=== PATIENT | female | born 1960 | race Two or more races ===

== ENCOUNTER 2017-11-02 13:49 | Inpatient (IN) | payer OTHER ==
[~2017-11-02] VITALS: Ht 160 cm; Wt 120.8 kg
[2017-11-02 15:09] LABS: Basophils # (auto) 0 uL; Basophils % (auto) 0.7 % (0.0-2.0); Eosinophils # (auto) 0.3 uL; Eosinophils % (auto) 8.2 % (0.0-7.0); Hematocrit 26.4 % (36.0-46.0); Hemoglobin 8.9 g/dL (12.2-16.2); Lymphocytes # (auto) 0.5 uL; Mean Corpuscular Hemoglobin 27.9 pg (28.0-32.0); Mean Corpuscular Hgb Conc. 33.8 g/dL (32.0-36.0); Mean Corpuscular Volume 82.5 fL (80.0-100.0); Monocytes # (auto) 0.7 uL; Monocytes % (auto) 15.7 % (0.0-12.0); Neutrophils # (auto) 2.7 uL; Neutrophils % (auto) 64.4 % (37.0-80.0); Platelet Count (auto) 211 10^3/uL (140-450); Red Cell Distribution Width 15.1 % (11.8-14.3); White Blood Cell 4.2 10^3/uL (4.4-10.8)
[2017-11-02] MEDS ORDERED: IPRATROPIUM BROM 0.5 MG/2.5ML INH SOL NEB ONE (15:15)
[2017-11-02] MEDS ORDERED: methylPREDNISolone SOD SUCC 125 MG/2 ML VL IV ONE (15:15)
[2017-11-02] MEDS ORDERED: ALBUTEROL SULF 2.5 MG/0.5ML(0.5%) NEB SOLN NEB ONE (15:15)
[2017-11-02 15:16] LABS: Alanine Aminotransferase 29 U/L (13-56); Alkaline Phosphatase 148 U/L (45-117); Anion Gap 11 (5-15); Aspartate Aminotransferase 21 U/L (15-37); BUN/Creatinine Ratio 33.2; Bilirubin, Total 0.2 mg/dL (0.2-1.0); Calcium 7.9 mg/dL (8.5-10.1); Carbon Dioxide 20 mmol/L (21-32); Chloride 104 mmol/L (98-107); GFR African American 19 mL/min; GFR Non-African American 15 mL/min; Glucose 80 mg/dL (74-106); Potassium 4.5 mmol/L (3.5-5.1); Sodium 135 mmol/L (136-145); Total Protein 6.9 g/dL (6.4-8.2)
[2017-11-02 15:22] LABS: Blood Urea Nitrogen 110 mg/dL (7-18)
[2017-11-02] MEDS ORDERED: cefTRIAXone 1GM/10ml IVPUSH 10 ML IV ONE (16:30)
[2017-11-02] MEDS ORDERED: FUROSEMIDE 40 MG/4 ML VIAL IV ONE (16:30)
[2017-11-02] MEDS ORDERED: AZITHROMYCIN 500MG/ 250ML 250 ML IV ONE (16:30)
[2017-11-02] MEDS ORDERED: ACCU-CHEK COMFORT CURVE STRIP VI ONE (19:00)
[2017-11-02] MEDS ORDERED: DEXTROSE (50%) 50ML SYRG IV PRN (19:00)
[2017-11-02] MEDS ORDERED: LACTULOSE 20Gm/30ML SOLN PO ONE (19:00)
[2017-11-02] MEDS: InsuLIN REG 1unit/0.01ml Soln (100units/ml) SC SCH (22:21)
[2017-11-02] MEDS: ACCU-CHEK COMFORT CURVE STRIP VI SCH (22:21)
[2017-11-02] MEDS: ATORVASTATIN 20 MG TAB PO SCH (22:21)
[2017-11-02 23:00] VITALS: BP 159/73
[2017-11-02 23:05] VITALS: BP 159/73
[2017-11-02] MEDS: ALBUTEROL SULF 2.5 MG/0.5ML(0.5%) NEB SOLN NEB SCH (23:52)
[2017-11-03] VITALS (8 sets, daily range): BP systolic 121–170; BP diastolic 71–89
[2017-11-03] MEDS ORDERED: CLON0.1T PO ×2 (04:51)
[2017-11-03] MEDS ORDERED: ATOR20TA50 PO (04:51)
[2017-11-03] MEDS ORDERED: ALBUAER3 IN (05:13)
[2017-11-03] MEDS ORDERED: CARV6.2551 PO ×2 (05:13)
[2017-11-03] MEDS ORDERED: NIFE30TA76 PO (05:13)
[2017-11-03] MEDS ORDERED: FURO20TA3 PO ×2 (05:13)
[2017-11-03] MEDS ORDERED: LOSA100T27 PO (05:13)
[2017-11-03] MEDS ORDERED: INSUINJ2 SC ×2 (05:13)
[2017-11-03] MEDS ORDERED: LACT10SO3 PO (05:13)
[2017-11-03] MEDS ORDERED: INSR100KIT IV (05:13)
[2017-11-03] MEDS ORDERED: MOME200A INH (05:13)
[2017-11-03] MEDS: InsuLIN REG 1unit/0.01ml Soln (100units/ml) SC SCH ×4 (06:43→22:06)
[2017-11-03] MEDS: ACCU-CHEK COMFORT CURVE STRIP VI SCH ×4 (06:43→22:06)
[2017-11-03] MEDS: ALBUTEROL SULF 2.5 MG/0.5ML(0.5%) NEB SOLN NEB SCH ×3 (07:21→22:42)
[2017-11-03] MEDS ORDERED: ENOXAPARIN SOD 40 MG/0.4 ML SYRINGE SC SCH (10:00)
[2017-11-03] MEDS ORDERED: INSULIN 70/30 1unit/0.01ml Susp (100units/ml) SC SCH (10:00)
[2017-11-03] MEDS ORDERED: FUROSEMIDE 20 MG TAB PO SCH (10:00)
[2017-11-03] MEDS ORDERED: NIFEdipine ER 30 MG TAB PO SCH (10:00)
[2017-11-03] MEDS ORDERED: cloNIDine HCL 0.1 MG TAB PO SCH (10:00)
[2017-11-03] MEDS ORDERED: CARVEDILOL 3.125 MG TAB PO SCH (10:00)
[2017-11-03] MEDS: cefTRIAXone 1GM/10ml IVPUSH 10 ML IV SCH (11:04)
[2017-11-03] MEDS: methylPREDNISolone SOD SUCC 125 MG/2 ML VL IV SCH ×2 (11:05→22:05)
[2017-11-03] MEDS: ENOXAPARIN SOD 30 MG/0.3 ML SYRINGE SC SCH (11:05)
[2017-11-03] MEDS: PANTOPRAZOLE 40 MG TAB PO SCH (11:05)
[2017-11-03] MEDS: AZITHROMYCIN 250 MG TAB PO SCH (11:05)
[2017-11-03] MEDS ORDERED: INSULIN DETEMIR(LEVEMIR) 1unit/0.01ml Soln (100units/ml) SC ONE (11:30)
[2017-11-03] MEDS: FUROSEMIDE 100 MG/10ML VIAL IV SCH ×2 (11:43→18:08)
[2017-11-03 11:55] LABS: Phosphorus 4.4 mg/dL (2.5-4.90); Uric Acid 10.4 mg/dL (2.6-6.0)
[2017-11-03 11:56] LABS: Protein, Urine 74.9 mg/dL (0.0-11.9)
[2017-11-03 15:00] LABS: Urine Bacteria FEW /hpf (None Seen); Urine Blood Trace /uL (Negative); Urine Specific Gravity 1.009 (1.001-1.035)
[2017-11-03] MEDS: cloNIDine HCL 0.1 MG TAB PO PRN ×2 (18:09→22:42)
[2017-11-03] MEDS: ATORVASTATIN 20 MG TAB PO SCH (22:05)
[2017-11-03] MEDS: INSULIN DETEMIR(LEVEMIR) 1unit/0.01ml Soln (100units/ml) SC SCH (22:06)
[2017-11-03] MEDS ORDERED: ACETAMINOPHEN 325 MG TAB PO ONE (22:30)
[2017-11-04] MEDS ORDERED: InsuLIN REG 1unit/0.01ml Soln (100units/ml) IV ONE
[2017-11-04] MEDS: InsuLIN REG 1unit/0.01ml Soln (100units/ml) SC SCH ×7 (04:25→22:01)
[2017-11-04 05:00] VITALS: BP 155/90
[2017-11-04] MEDS: ACCU-CHEK COMFORT CURVE STRIP VI SCH ×4 (06:28→22:02)
[2017-11-04] MEDS: FUROSEMIDE 100 MG/10ML VIAL IV SCH ×2 (06:28→17:39)
[2017-11-04] MEDS: ALBUTEROL SULF 2.5 MG/0.5ML(0.5%) NEB SOLN NEB SCH ×3 (06:46→21:29)
[2017-11-04 07:42] LABS: Albumin 3.4 g/dL (3.4-5.0); Bilirubin, Total 0.3 mg/dL (0.2-1.0); Calcium 8.8 mg/dL (8.5-10.1); Potassium 4.7 mmol/L (3.5-5.1); Total Protein 8.2 g/dL (6.4-8.2)
[2017-11-04 09:00] VITALS: BP 136/66
[2017-11-04] MEDS: cefTRIAXone 1GM/10ml IVPUSH 10 ML IV SCH (10:05)
[2017-11-04] MEDS: CARVEDILOL 12.5 MG TAB PO SCH (10:06)
[2017-11-04] MEDS: PANTOPRAZOLE 40 MG TAB PO SCH (10:07)
[2017-11-04] MEDS: NIFEdipine ER 30 MG TAB PO SCH (10:07)
[2017-11-04] MEDS: AZITHROMYCIN 250 MG TAB PO SCH (10:07)
[2017-11-04] MEDS: ENOXAPARIN SOD 30 MG/0.3 ML SYRINGE SC SCH (10:08)
[2017-11-04 12:30] VITALS: BP 163/94
[2017-11-04 17:28] VITALS: BP 156/76
[2017-11-04 21:36] VITALS: BP 139/75
[2017-11-04] MEDS: ATORVASTATIN 20 MG TAB PO SCH (22:01)
[2017-11-04] MEDS: INSULIN DETEMIR(LEVEMIR) 1unit/0.01ml Soln (100units/ml) SC SCH (22:02)
[2017-11-05] MEDS: InsuLIN REG 1unit/0.01ml Soln (100units/ml) SC SCH ×7 (01:36→22:24)
[2017-11-05] MEDS: FUROSEMIDE 100 MG/10ML VIAL IV SCH ×2 (06:06→18:24)
[2017-11-05] MEDS: ACCU-CHEK COMFORT CURVE STRIP VI SCH ×4 (06:07→22:24)
[2017-11-05 06:23] LABS: Basophils # (auto) 0 uL; Basophils % (auto) 0.1 % (0.0-2.0); Eosinophils # (auto) 0 uL; Eosinophils % (auto) 0.1 % (0.0-7.0); Hematocrit 31.1 % (36.0-46.0); Hemoglobin 10.7 g/dL (12.2-16.2); Lymphocytes # (auto) 1.2 uL; Lymphocytes % (auto) 17.8 % (10.0-50.0); Mean Corpuscular Hemoglobin 27.5 pg (28.0-32.0); Mean Corpuscular Hgb Conc. 34.3 g/dL (32.0-36.0); Mean Corpuscular Volume 80.1 fL (80.0-100.0); Monocytes # (auto) 0.8 uL; Monocytes % (auto) 11.3 % (0.0-12.0); Neutrophils # (auto) 4.9 uL; Neutrophils % (auto) 70.7 % (37.0-80.0); Nucleated Red Blood Cells % 0.1 %; Platelet Count (auto) 284 10^3/uL (140-450); Red Blood Cells 3.89 10^6/uL (4.0-5.20); Red Cell Distribution Width 15.3 % (11.8-14.3); White Blood Cell 6.9 10^3/uL (4.4-10.8)
[2017-11-05 06:51] LABS: Albumin 3.4 g/dL (3.4-5.0); Calcium 9.2 mg/dL (8.5-10.1); Potassium 4.2 mmol/L (3.5-5.1)
[2017-11-05 06:56] LABS: BUN/Creatinine Ratio 53.1; Bilirubin, Total 0.2 mg/dL (0.2-1.0); Total Protein 7.5 g/dL (6.4-8.2)
[2017-11-05] MEDS: ALBUTEROL SULF 2.5 MG/0.5ML(0.5%) NEB SOLN NEB SCH ×3 (07:19→22:16)
[2017-11-05 09:07] VITALS: BP 144/75
[2017-11-05 09:30] LABS: Hepatitis B Surface Antigen Negative (Negative)
[2017-11-05] MEDS: cefTRIAXone 1GM/10ml IVPUSH 10 ML IV SCH (09:43)
[2017-11-05] MEDS: CARVEDILOL 12.5 MG TAB PO SCH (09:44)
[2017-11-05] MEDS: NIFEdipine ER 30 MG TAB PO SCH (09:45)
[2017-11-05] MEDS: PANTOPRAZOLE 40 MG TAB PO SCH (09:45)
[2017-11-05] MEDS: AZITHROMYCIN 250 MG TAB PO SCH (09:46)
[2017-11-05] MEDS: ENOXAPARIN SOD 30 MG/0.3 ML SYRINGE SC SCH (09:46)
[2017-11-05 09:53] LABS: Hepatitis C Antibody Negative (Negative)
[2017-11-05 13:00] VITALS: BP 148/71
[2017-11-05] MEDS ORDERED: CALCITRIOL 0.25 MCG CAP PO ONE (13:00)
[2017-11-05] MEDS: ALLOPURINOL 100 MG TAB PO SCH (13:30)
[2017-11-05] MEDS: CALCIUM ACETATE 667 MG CAP PO SCH ×2 (13:30→18:24)
[2017-11-05 16:51] VITALS: BP 136/66
[2017-11-05 22:00] VITALS: BP 140/84
[2017-11-05] MEDS: ATORVASTATIN 20 MG TAB PO SCH (22:22)
[2017-11-05] MEDS: INSULIN DETEMIR(LEVEMIR) 1unit/0.01ml Soln (100units/ml) SC SCH (22:24)
[2017-11-06] MEDS: InsuLIN REG 1unit/0.01ml Soln (100units/ml) SC SCH ×5 (01:54→22:52)
[2017-11-06 03:07] VITALS: BP 140/84
[2017-11-06 05:53] VITALS: BP 148/78
[2017-11-06] MEDS: FUROSEMIDE 100 MG/10ML VIAL IV SCH (06:01)
[2017-11-06] MEDS: ACCU-CHEK COMFORT CURVE STRIP VI SCH ×3 (06:02→22:36)
[2017-11-06] MEDS: ALBUTEROL SULF 2.5 MG/0.5ML(0.5%) NEB SOLN NEB SCH ×2 (07:09→22:58)
[2017-11-06 08:05] LABS: Albumin 3.1 g/dL (3.4-5.0); BUN/Creatinine Ratio 53.7; Bilirubin, Total 0.3 mg/dL (0.2-1.0); Calcium 8.2 mg/dL (8.5-10.1); Potassium 3.8 mmol/L (3.5-5.1); Total Protein 7.4 g/dL (6.4-8.2)
[2017-11-06 09:25] VITALS: BP 137/68
[2017-11-06] MEDS: ENOXAPARIN SOD 30 MG/0.3 ML SYRINGE SC SCH (10:13)
[2017-11-06] MEDS: cefTRIAXone 1GM/10ml IVPUSH 10 ML IV SCH (10:13)
[2017-11-06] MEDS: ALLOPURINOL 100 MG TAB PO SCH (10:14)
[2017-11-06] MEDS: AZITHROMYCIN 250 MG TAB PO SCH (10:14)
[2017-11-06] MEDS: PANTOPRAZOLE 40 MG TAB PO SCH (10:15)
[2017-11-06] MEDS: CALCITRIOL 0.25 MCG CAP PO SCH (10:15)
[2017-11-06] MEDS: NIFEdipine ER 30 MG TAB PO SCH (10:15)
[2017-11-06] MEDS: CARVEDILOL 12.5 MG TAB PO SCH (10:16)
[2017-11-06] MEDS: CALCIUM ACETATE 667 MG CAP PO SCH ×3 (10:27→18:04)
[2017-11-06 12:05] VITALS: BP 97/49
[2017-11-06 16:41] VITALS: BP 146/79
[2017-11-06] MEDS ORDERED: DEXTROSE (50%) 50ML SYRG IV PRN (18:00)
[2017-11-06] MEDS: FUROSEMIDE 40 MG/4 ML VIAL IV SCH (18:05)
[2017-11-06] MEDS ORDERED: InsuLIN REG 1unit/0.01ml Soln (100units/ml) SC ONE (18:15)
[2017-11-06] MEDS: ATORVASTATIN 20 MG TAB PO SCH (22:52)
[2017-11-06] MEDS: INSULIN DETEMIR(LEVEMIR) 1unit/0.01ml Soln (100units/ml) SC SCH (22:53)
[2017-11-06 23:41] VITALS: BP 116/54
[2017-11-07 05:48] VITALS: BP 148/70
[2017-11-07] MEDS: ACCU-CHEK COMFORT CURVE STRIP VI SCH ×4 (06:12→22:00)
[2017-11-07] MEDS: FUROSEMIDE 40 MG/4 ML VIAL IV SCH ×2 (06:17→17:18)
[2017-11-07] MEDS: InsuLIN REG 1unit/0.01ml Soln (100units/ml) SC SCH ×4 (06:18→22:25)
[2017-11-07] MEDS: ALBUTEROL SULF 2.5 MG/0.5ML(0.5%) NEB SOLN NEB SCH ×3 (06:42→23:04)
[2017-11-07 07:06] LABS: BUN/Creatinine Ratio 56.7; Calcium 8.6 mg/dL (8.5-10.1); Potassium 3.8 mmol/L (3.5-5.1)
[2017-11-07 08:30] VITALS: BP 133/63
[2017-11-07] MEDS: cefTRIAXone 1GM/10ml IVPUSH 10 ML IV SCH (09:26)
[2017-11-07] MEDS: ENOXAPARIN SOD 30 MG/0.3 ML SYRINGE SC SCH (09:27)
[2017-11-07] MEDS: AZITHROMYCIN 250 MG TAB PO SCH (09:27)
[2017-11-07] MEDS: CALCIUM ACETATE 667 MG CAP PO SCH ×3 (09:27→17:18)
[2017-11-07] MEDS: PANTOPRAZOLE 40 MG TAB PO SCH (09:27)
[2017-11-07] MEDS: CALCITRIOL 0.25 MCG CAP PO SCH (09:27)
[2017-11-07] MEDS: ALLOPURINOL 100 MG TAB PO SCH (09:27)
[2017-11-07] MEDS: NIFEdipine ER 30 MG TAB PO SCH (09:28)
[2017-11-07] MEDS: CARVEDILOL 12.5 MG TAB PO SCH (09:29)
[2017-11-07 16:47] VITALS: BP 128/73
[2017-11-07] MEDS ORDERED: POLYETHYLENE GLYCOL 17 GM PWDR PO ONE (17:30)
[2017-11-07 20:00] VITALS: BP 125/55
[2017-11-07 22:00] VITALS: BP 125/55
[2017-11-07] MEDS: ATORVASTATIN 20 MG TAB PO SCH (22:19)
[2017-11-07] MEDS: INSULIN DETEMIR(LEVEMIR) 1unit/0.01ml Soln (100units/ml) SC SCH (22:24)
[2017-11-08 05:00] VITALS: BP 125/59
[2017-11-08] MEDS: ACCU-CHEK COMFORT CURVE STRIP VI SCH ×2 (06:41→11:38)
[2017-11-08] MEDS: FUROSEMIDE 40 MG/4 ML VIAL IV SCH (06:41)
[2017-11-08] MEDS: InsuLIN REG 1unit/0.01ml Soln (100units/ml) SC SCH ×2 (06:42→12:07)
[2017-11-08] MEDS: ALBUTEROL SULF 2.5 MG/0.5ML(0.5%) NEB SOLN NEB SCH (06:54)
[2017-11-08 07:06] LABS: Basophils # (auto) 0 uL; Basophils % (auto) 0.2 % (0.0-2.0); Eosinophils # (auto) 0.3 uL; Eosinophils % (auto) 4.6 % (0.0-7.0); Hematocrit 30.6 % (36.0-46.0); Hemoglobin 10.5 g/dL (12.2-16.2); Lymphocytes % (auto) 15.7 % (10.0-50.0); Mean Corpuscular Hemoglobin 27.4 pg (28.0-32.0); Mean Corpuscular Hgb Conc. 34.2 g/dL (32.0-36.0); Mean Corpuscular Volume 79.9 fL (80.0-100.0); Monocytes # (auto) 0.5 uL; Monocytes % (auto) 8.3 % (0.0-12.0); Neutrophils # (auto) 4.6 uL; Neutrophils % (auto) 71.2 % (37.0-80.0); Platelet Count (auto) 282 10^3/uL (140-450); Red Blood Cells 3.83 10^6/uL (4.0-5.20); Red Cell Distribution Width 14.9 % (11.8-14.3); White Blood Cell 6.5 10^3/uL (4.4-10.8)
[2017-11-08 07:25] LABS: BUN/Creatinine Ratio 51.8; Potassium 4.2 mmol/L (3.5-5.1)
[2017-11-08 07:26] LABS: Calcium 8.6 mg/dL (8.5-10.1)
[2017-11-08 09:00] VITALS: BP 145/89
[2017-11-08] MEDS: PANTOPRAZOLE 40 MG TAB PO SCH (09:05)
[2017-11-08] MEDS: CALCITRIOL 0.25 MCG CAP PO SCH (09:05)
[2017-11-08] MEDS: CALCIUM ACETATE 667 MG CAP PO SCH ×2 (09:05→12:12)
[2017-11-08] MEDS: ALLOPURINOL 100 MG TAB PO SCH (09:05)
[2017-11-08] MEDS: AZITHROMYCIN 250 MG TAB PO SCH (09:06)
[2017-11-08] MEDS: cefTRIAXone 1GM/10ml IVPUSH 10 ML IV SCH (09:06)
[2017-11-08] MEDS: ENOXAPARIN SOD 30 MG/0.3 ML SYRINGE SC SCH (09:06)
[2017-11-08] MEDS: CARVEDILOL 12.5 MG TAB PO SCH (09:10)
[2017-11-08] MEDS: NIFEdipine ER 30 MG TAB PO SCH (09:10)
[2017-11-08] MEDS ORDERED: POLYETHYLENE GLYCOL 17 GM PWDR PO SCH (10:00)
[2017-11-08 13:00] VITALS: BP_SYST 143; BP_SYST 145; BP_DIAS 60; BP_DIAS 89
== END 2017-11-08 15:00 | disposition home or self-care (01) | DRG 682 ==
LOC: ER 13:49 → EEVIPCON 13:50 → OVERFLOW 13:50 → EAST 22:40
PROVIDERS: ADMIT Internal Medicine; ATTEND Internal Medicine
DX: N17.0 Acute kidney failure with tubular necrosis (principal); J18.9 Pneumonia, unspecified organism; I13.2 Hypertensive heart and chronic kidney disease with heart failure and with stage 5 chronic kidney disease, or end stage renal disease; E11.22 Type 2 diabetes mellitus with diabetic chronic kidney disease; I43 Cardiomyopathy in diseases classified elsewhere; E11.319 Type 2 diabetes mellitus with unspecified diabetic retinopathy without macular edema; E66.01 Morbid (severe) obesity due to excess calories; I50.33 Acute on chronic diastolic (congestive) heart failure; Z68.42 Body mass index [BMI] 45.0-49.9, adult; N18.5 Chronic kidney disease, stage 5; D64.9 Anemia, unspecified; E21.3 Hyperparathyroidism, unspecified; M47.894 Other spondylosis, thoracic region; E11.65 Type 2 diabetes mellitus with hyperglycemia; E78.00 Pure hypercholesterolemia, unspecified; J45.909 Unspecified asthma, uncomplicated; K59.00 Constipation, unspecified; H40.9 Unspecified glaucoma; H54.62 Unqualified visual loss, left eye, normal vision right eye; I25.2 Old myocardial infarction; Z79.4 Long term (current) use of insulin; Z83.3 Family history of diabetes mellitus; Z95.5 Presence of coronary angioplasty implant and graft
CPT/HCPCS: 36415; 71045; 71046; 76775; 80048; 80053; 81001; 82306; 82570; 82728; 82962; 83540; 83550; 83880; 83970; 84100; 84156; 84300; 84443; 84484; 84550; 85025; 86803; 87070; 87081; 87205; 87340; 93306; 94640; 96372; 96374; 96375; J1815